=== PATIENT | male | born 1945 | race Caucasian/White ===

== ENCOUNTER 2017-10-30 08:28 | Day surgery (SDC) | payer OTHER, BC ==
[2017-10-27 15:14] VITALS: BMI 25.8
[2017-10-30 08:47] LABS: EOS % 2.7 % (0-4.5); HEMOGLOBIN 12.7 GM/dL (11.7-16.9); LYMPH % 37.5 % (8-40); MCH 33.2 pg (25.7-33.7); MCHC 34.4 g/dl (32.0-35.9); MEAN CELL VOLUME 96.6 fl (80-96); MEAN PLT VOLUME 8.3 fl (7.5-11.1); MONO % 11.1 % (3.8-10.2); NEUT % 47.7 % (42.8-82.8); PLATELET COUNT 135 K/MM3 (134-434); RBC 3.83 M/mm3 (4.00-5.60); RDW 13.6 % (11.9-15.9); WHITE BLOOD COUNT 7.7 K/mm3 (4.0-10.0)
[2017-10-30 09:01] LABS: INR 1.15 (0.83-1.09)
[2017-10-30 16:21] VITALS: BP 117/60; PULSE 62; TEMP 97.7
--- NOTE | 2017-11-03 09:08 | PATH ---
Surgical Pathology Report Patient Name: ALLAN ALDRIDGE Med. Rec. #: [id number] /Age/Gender: 1945 (Age: 72) / M Account: [id number] Location: RADIOLOGY INTER Taken: 10/30/2017 Received: 10/30/2017 Reported: 11/03/2017 Physicians: Yan Dean M.D. Specimen(s) Received LIVER BIOPSY Clinical History Abnormal LFTs Patient with history of CLL Final Diagnosis LIVER, ULTRASOUND-GUIDED CORE BIOPSY: MINIMAL STEATOHEPATITIS WITH DIFFUSE STEATOSIS (20%), FOCAL BALLOONING DEGENERATION OF HEPATOCYTES, AND RARE FOCI OF PERICELLULAR INFLAMMATION, SEE COMMENT. TRICHROME STAIN SHOWS BRIDGING FIBROSIS WITH FOCAL NODULE FORMATION, CONSISTENT WITH TRANSITION TO CIRRHOSIS. RETICULIN STAIN SHOWS AN INTACT SINUSOIDAL ARCHITECTURE. IRON STAIN SHOWS GRADE 1/4 HEPATOCELLULAR SIDEROSIS, SEE COMMENT. PAS WITH DIASTASE STAIN IS NEGATIVE FOR [id number] GLOBULES. NEGATIVE FOR CHRONIC HEPATITIS, CHOLESTASIS, CHOLANGITIS/BILE DUCT INJURY, OR GRANULOMAS. Comment: Steatohepatitis may be associated with diabetes mellitus, metabolic syndromes, obesity, medications, alcohol use, etc. Clinical correlation recommended. An iron stain highlights increased hepatocyte iron stores in some periportal regions without staining in Kupffer cells. Although this may represent a secondary process, a diagnosis of hereditary hemochromatosis cannot be excluded due to the variable penetrance of the disease. 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 There is no obvious involvement of the liver by chronic lymphocytic leukemia/lymphoma (CLL). Case sent for consultation to Dr. Kateryna Karimi from [place], [place], the diagnosis above reflects her opinion. Electronically Signed Haris Berkowitz M.D. Gross Description Received in formalin labeled "liver biopsy," are 4 garcia, cylindrical portions of soft tissue ranging from 0.4-1.7 cm in length and averaging 0.1 cm in diameter. The specimens are submitted in toto in one cassette. 10/30/2017
== END 2017-10-30 16:40 | disposition home or self-care (01) ==
LOC: JRADIR 08:28
PROVIDERS: ATTEND Radiology Diagnostic Radiology
PROC: 0FB03ZX Excision of Liver, Percutaneous Approach, Diagnostic (ICD-10-PCS; principal; 2017-10-30)
DX: K75.81 Nonalcoholic steatohepatitis (NASH) (principal); R94.5 Abnormal results of liver function studies; Z85.6 Personal history of leukemia
CPT/HCPCS: 36415; 76942-TC; 85025; 85610; 87899; 88305-TC; 88313-TC